=== PATIENT | male | born 1980 | race Caucasian/White ===

== ENCOUNTER 2019-03-08 12:14 | Outpatient (CLI) | payer SELFPAY | END 2019-03-08 12:15 | disposition EMS.NT | LOC: EMS 12:14 | PROVIDERS: ATTEND Surgery | DX: M79.641 Pain in right hand (principal); R42 Dizziness and giddiness; R06.02 Shortness of breath; T63.2X1A Toxic effect of venom of scorpion, accidental (unintentional), initial encounter; Y92.812 Truck as the place of occurrence of the external cause; Y99.0 Civilian activity done for income or pay ==

== ENCOUNTER 2019-11-09 08:18 | Outpatient (CLI) | payer MEDICAID | END 2019-11-09 08:19 | disposition critical access hospital (66) | LOC: EMS 08:18 | PROVIDERS: ATTEND Surgery | DX: R10.9 Unspecified abdominal pain (principal) | CPT/HCPCS: A0425; A0429 ==

== ENCOUNTER 2019-11-09 08:38 | Emergency (ER) | payer MEDICAID ==
--- NOTE | 2019-11-09 08:51 | ED Physician Documentation ---
PD HPI ABD PAIN - Stated complaint Stated Complaint: ABD PX - Chief complaint Chief Complaint: Abd Pain - History obtained from History obtained from: Patient - History of Present Illness Timing - onset: Today Timing - duration: Hours Timing - details: Abrupt onset, Still present Quality: Cramping, Aching, Pain Improved by: Laying still Worsened by: Eating, Moving Associated symptoms: Nausea. No: Fever, Vomiting, Hematemesis Similar symptoms before: Has not had sx before Recently seen: Not recently seen Review of Systems Constitutional: denies: Fever, Chills Nose: denies: Rhinorrhea / runny nose Cardiac: denies: Chest pain / pressure Respiratory: denies: Dyspnea, Cough PD PAST MEDICAL HISTORY - Past Medical History Cardiovascular: None Respiratory: None Neuro: None Endocrine/Autoimmune: None - Present Medications Home Medications: Ambulatory Orders Medication Instructions Recorded Confirmed Dicyclomine HCl 10 mg PO Q6H PRN #15 capsule 11/09/19 Docusate Sodium 100 mg PO DAILY #20 capsule 11/09/19 Naproxen 500 mg PO BID #20 tablet 11/09/19 - Allergies Allergies/Adverse Reactions: Allergies Allergy/AdvReac Type Severity Reaction Status Date / Time No Known Drug Allergies Allergy Verified 11/09/19 08:45 PD ED PE NORMAL - Vitals Vital signs reviewed: Yes - General General: Alert and oriented X 3, No acute distress, Well developed/nourished - HEENT HEENT: PERRL, Moist mucous membranes, Pharynx benign - Neck Neck: Supple, no meningeal sign, No adenopathy - Cardiac Cardiac: RRR, No murmur - Respiratory Respiratory: Clear bilaterally - Abdomen Abdomen: Soft, Non distended, No organomegaly, Other. No: Normal bowel sounds - Male Male : Deferred - Rectal Rectal: Deferred - Derm Derm: Normal color, Warm and dry - Extremities Extremities: No tenderness to palpate, Normal ROM s pain, No edema, No calf tenderness / cord - Neuro Neuro: Alert and oriented X 3, No motor deficit, Normal speech Results - Vitals Vitals: Vital Signs - 24 hr 11/09/19 11/09/19 11/09/19 08:40 09:06 10:05 Temperature 36.8 C Heart Rate 83 70 59 L Respiratory 12 14 14 Rate Blood Pressure 130/84 H 122/73 110/61 O2 Saturation 97 100 93 11/09/19 11/09/19 11/09/19 11:46 13:57 14:58 Temperature Heart Rate 60 52 L 50 L Respiratory 17 17 15 Rate Blood Pressure 136/81 H 116/77 109/59 L O2 Saturation 100 96 96 Oxygen O2 Source Room air - Labs Labs: Laboratory Tests 11/09/19 11/09/19 11/09/19 08:50 08:50 10:27 WBC 8.2 RBC 4.91 Hgb 15.2 Hct 43.9 MCV 89.4 MCH 31.0 MCHC 34.6 RDW 11.9 L Plt Count 221 MPV 9.6 Neut # (Auto) 7.3 H Lymph # (Auto) 0.3 L [place] # (Auto) 0.6 Eos # (Auto) 0.0 Baso # (Auto) 0.0 Absolute Nucleated RBC 0.00 Nucleated RBC % 0.0 Sodium 135 Potassium 4.0 Chloride 101 Carbon Dioxide 26 Anion Gap 8.0 BUN 19 Creatinine 1.0 Estimated GFR (MDRD) 83 L Glucose 110 H Calcium 8.9 Total Bilirubin 2.5 H AST 145 H ALT 147 H Alkaline Phosphatase 72 Total Protein 6.9 Albumin 4.5 Globulin 2.4 Albumin/Globulin Ratio 1.9 Lipase 22 Urine Color YELLOW Urine Clarity CLEAR Urine pH 6.5 Ur Specific [place] <=1.005 Urine Protein NEGATIVE Urine Glucose (UA) NEGATIVE Urine Ketones 15 H Urine Occult Blood NEGATIVE Urine Nitrite NEGATIVE Urine Bilirubin NEGATIVE Urine Urobilinogen 0.2 (NORMAL) Ur Leukocyte Esterase NEGATIVE Ur Microscopic Review NOT INDICATED Urine Culture Comments NOT INDICATED PD MEDICAL DECISION MAKING - ED course Complexity details: reviewed results, re-evaluated patient (delayed/prolonged ED stay as initial CT report did not feed through to [facility], so had to have it resent. He is feeling better after few meds. Initially Toradol and Ofirmev did not improve much. He is on Suboxone, so could not really use opioid meds. Decided to try Ketamine. This did help his pain considerably though got him feeling quite lightheaded and some dissociated (I went with 1 mg/kg), and did give him some ativan afterwards as well, to calm him down.), considered differential, d/w patient Departure - Departure Disposition: 01 Home, Self Care Clinical Impression: Abdominal pain Qualifiers: Abdominal location: periumbilical Qualified Code(s): R10.33 - Periumbilical pain Condition: Stable Record reviewed to determine appropriate education?: Yes Instructions: ED Abdominal Pain Unkn Cause Prescriptions: Dicyclomine HCl 10 mg PO Q6H PRN #15 capsule PRN Reason: Abdominal Pain Docusate Sodium 100 mg PO DAILY #20 capsule Naproxen 500 mg PO BID #20 tablet Comments: Your urine test, blood tests and CT scan did not show any obvious cause for the pain. Consider than the possibility of some intestinal irritation or inflammation or even some on evenness of stool causing intestinal dilation. These are suppositions but are fairly common causes of pain without apparent findings. Stay well-hydrated. Use some naproxen anti-inflammatory twice daily for the next several days to week. Docusate stool softener daily for the next week or so. Add dicyclomine if needed for cramps and pains. Add Tylenol if needed as well. Recheck if not improved well over the next couple of days and return if worsening. Discharge Date/Time: 11/09/19 15:08
[2019-11-09 09:07] LABS: BASOPHILS % (AUTO) 0.4 %; EOSINOPHILS % (AUTO) 0.5 %; HGB - HEMOGLOBIN 15.2 g/dL (14.0-18.0); LYMPHOCYTES # (AUTO) 0.3 10^3/uL (1.5-3.5); MEAN CORPUSCULAR HGB CONC 34.6 g/dL (32.0-36.0); MEAN CORPUSCULAR VOLUME 89.4 fL (80.0-94.0); MEAN PLATELET VOLUME 9.6 fL (7.4-11.4); MONOCYTES # (AUTO) 0.6 10^3/uL (0.0-1.0); MONOCYTES % (AUTO) 7.1 %; NEUTROPHILS # (AUTO) 7.3 10^3/uL (1.5-6.6); NEUTROPHILS % (AUTO) 88.8 %; PLT - PLATELET COUNT 221 10^3/uL (130-450); RED BLOOD COUNT 4.91 10^6/uL (4.70-6.10); RED CELL DISTRIBUTION WIDTH 11.9 % (12.0-15.0); WHITE BLOOD COUNT 8.2 x10^3/uL (4.8-10.8)
[2019-11-09] MEDS ORDERED: ONDANSETRON 4 MG/2 ML VIAL IVP STA (09:07)
[2019-11-09] MEDS ORDERED: SODIUM CHLORIDE 0.9% 1,000 ML IV ONE (09:07)
[2019-11-09] MEDS ORDERED: ACETAMINOPHEN 1,000 MG/100 ML 100 ML IV STA (09:07)
[2019-11-09] MEDS ORDERED: KETOROLAC 30 MG/ML VIAL IVP STA (09:07)
[2019-11-09 09:13] LABS: ALBUMIN 4.5 g/dL (3.2-5.5); ALBUMIN/GLOBULIN RATIO 1.9 (1.0-2.2); BILIRUBIN,TOTAL 2.5 mg/dL (0.2-1.0); CALCIUM 8.9 mg/dL (8.5-10.3); TOTAL PROTEIN 6.9 g/dL (6.7-8.2)
[2019-11-09] MEDS ORDERED: IOVERSOL 320 100 ML VIAL IVP ONE (09:15)
[2019-11-09 10:41] LABS: BILIRUBIN,URINE NEGATIVE (NEGATIVE); GLUCOSE, URINE (UA) NEGATIVE (NEGATIVE); KETONES,URINE (UA) 15 mg/dL (NEGATIVE); LEUKOCYTE ESTERASE, URINE NEGATIVE (NEGATIVE); NITRITE,URINE NEGATIVE (NEGATIVE); OCCULT BLOOD,URINE NEGATIVE (NEGATIVE); PH,URINE 6.5 PH (5.0-7.5); PROTEIN,URINE NEGATIVE (NEGATIVE); UROBILINOGEN,URINE 0.2 (NORMAL) E.U./dL (NORMAL)
[2019-11-09 10:46] LABS: CLARITY,URINE CLEAR (CLEAR)
[2019-11-09] MEDS ORDERED: LIDOCAINE-MPF 2% 6 ML in SODIUM CHLORIDE 0.9% 50 ML IV STA (10:46)
[2019-11-09] MEDS ORDERED: KETAMINE 500 MG/10 ML VIAL IVP STA (11:13)
[2019-11-09] MEDS ORDERED: LORazepam 2 MG/ML VIAL IVP STA (11:56)
[2019-11-09] MEDS ORDERED: LORazepam 2 MG/ML VIAL ONE (11:59)
--- NOTE | 2019-11-09 14:05 | CT Report ---
Reason: mid abd pain onset 5 am Procedure Date: 11/09/2019 Accession Number: [id number] / [id number] Procedure: CT - Abdomen/Pelvis W CPT Code: Final Report FULL RESULT: EXAM: CT ABDOMEN AND PELVIS EXAM DATE: 11/09/2019 09:40 AM. CLINICAL HISTORY: Mid abd pain onset 5 am. COMPARISONS: None. TECHNIQUE: Routine helical CT imaging was performed through the abdomen and pelvis. IV contrast: 100 OPTIRAY 320. Enteric contrast: No. Reconstructions: Coronal and sagittal. In accordance with CT protocol optimization, one or more of the following dose reduction techniques were utilized for this exam: automated exposure control, adjustment of mA and/or KV based on patient size, or use of iterative reconstructive technique. FINDINGS: Lung Bases: Unremarkable. Liver: Two tiny 0.4 cm left liver lobe hypodensities are too small to characterize. Probable cysts or hemangiomas. Calcified right liver lobe granuloma. Gallbladder/Bile Ducts: Unremarkable. Spleen: Mild splenomegaly, measuring 13.5 x 12 x 4.6 cm corresponding to 390 cc. Pancreas: Normal. Adrenal Glands: Normal. Kidneys: A tiny 1 mm nonobstructing left upper renal stone versus early excretion of contrast. Probable small subcentimeter right lateral renal cyst. Peritoneal Cavity/Bowel: Normal. No free fluid, free air or adenopathy. No masses or acute inflammatory process. A normal appendix is probably demonstrated inferomedial to cecum on coronal image 24. Pelvic Organs: Normal. The bladder and visualized pelvic organs are within normal limits. Vasculature: No aneurysms or other significant abnormality. Bones: Multilevel lumbar spine degenerative changes. Right L4-L5 neural foraminal narrowing due to disk osteophyte complex. Other: None. IMPRESSION: 1. Mild splenomegaly. 2. A tiny 1 mm nonobstructing left upper renal stone versus early excretion of contrast. [facility]
[2019-11-09 15:01] VITALS: BP 109/59
== END 2019-11-09 15:08 | disposition home or self-care (01) ==
LOC: EDUNIT# → ED 08:38
DX: R10.33 Periumbilical pain (principal); R11.0 Nausea; R42 Dizziness and giddiness; T41.295A Adverse effect of other general anesthetics, initial encounter; Y92.538 Other ambulatory health services establishments as the place of occurrence of the external cause
CPT/HCPCS: 36415; 74177; 80053; 81003; 83690; 85025; 96365; 96367; 96375; 99284; J0131; J2060; J7040; Q9967; 81001; 87086